=== PATIENT | female | born 1965 | race Two or more races ===

== ENCOUNTER 2024-11-25 12:10 | Day surgery (SDC) | payer MEDICAID, SELFPAY ==
[2024-11-24 10:13] VITALS: BMI 29.0
[2024-11-25] VITALS (8 sets, daily range): BP systolic 92–124; BP diastolic 65–76; PULSE 50–76; RESP 11–18; TEMP 36.5–36.7; O2SAT 92–99
[2024-11-25] MEDS: SODIUM CHLORIDE 0.9% 250 ML 250 ML 125 ML IV (13:54)
[2024-11-25] MEDS: MIDAZOLAM INJ 1 MG/ML VIAL 2 ML (ASD USE ONLY) 2 MG IV (13:55)
[2024-11-25] MEDS: fentaNYL CIT INJ 50 mCg/ML AMP 2ML (ASD USE ONLY) IV (13:55)
--- NOTE | 2024-11-25 16:20 | SUR.PHASEII ---
1402: Pt received for recovery. Report from Magali BULLOCK. Pt groggy. Easily aroused then drifts back to sleep. Resp even, unlabored. VS stable. Pt passing flatus. Denies pain. 1430: Pt more awake, alert. VS stable. Denies pain. Sitting up tolerating po fluids with no difficulty swallowing and no n/v. 1500: Pt fully awake, oriented x3. Pt assisted to restroom. Ambulation steady. Pt and stated understanding of discharge instructions. Pt discharged from [facility] in stable condition.
== END 2024-11-25 15:00 | disposition home or self-care (01) ==
PROVIDERS: PCP Family Medicine; Referring Provider Surgery; Visit Provider Surgery
PROC: 0DBE8ZX Excision of Large Intestine, Via Natural or Artificial Opening Endoscopic, Diagnostic (ICD-10-PCS; CPT 45380; principal; 2024-11-25 13:45)
DX: Z12.11 Encounter for screening for malignant neoplasm of colon (principal)
CPT/HCPCS: 45378; J2250; J3010; J7050

== ENCOUNTER → 2025-05-19 | Outpatient (CLI) | payer MEDICAID, SELFPAY ==
--- NOTE | 2025-05-19 17:03 | XR_ITS ---
Examination: PA lateral chest 2 views TECHNIQUE: Upright PA and lateral chest 2 views Date and time: May 19, 2025, 1723 hours INDICATIONS: Coughing beginning 2 months ago. FINDINGS: Pneumonia left base. Right lung clear. Normal heart size. IMPRESSION: Mild to moderate pneumonia left base
== END | disposition home or self-care (01) ==
LOC: CDIM 16:57
DX: J18.9 Pneumonia, unspecified organism (principal)
CPT/HCPCS: 71046

== ENCOUNTER → 2025-08-16 | Outpatient (CLI) | payer MEDICAID, SELFPAY ==
--- NOTE | 2025-08-16 15:30 | XR_ITS ---
Examination: Screening digital mammography, bilateral Computer aided detection 3-D breast Tomosynthesis, bilateral Date and time of exam: August 16, 2025, 1529 hours, comparison November 13, 2012 Indication: Screening Technique: Nonmagnified MLO, CC views of the breasts to been obtained, reconstructed from 3-D Tomosynthesis images. R2 computer aided detection program utilized for evaluation of suspicious masses and/or abnormal calcifications. 3-D Tomosynthesis images obtained. Findings: The breasts are heterogeneously dense, which may obscure small masses Benign calcifications No notable suspicious masses Impression: BI-RADS category II: Benign Findings. Recommend 1 year follow-up mammogram.
== END | disposition home or self-care (01) ==
DX: Z12.31 Encounter for screening mammogram for malignant neoplasm of breast (principal); R92.323 Mammographic fibroglandular density, bilateral breasts; R92.1 Mammographic calcification found on diagnostic imaging of breast
CPT/HCPCS: 77063; 77067